=== PATIENT | male | born 1950 | race Caucasian/White ===

== ENCOUNTER → 2016-07-07 | Outpatient (CLI) | payer MEDICARE, OTHER ==
[~2016-07-07] MED LIST: ACTOS 15MG TABL15 MG PO; ALDACTONE100 MG PO; ANTIVERT/2525 MG PO; CHRONULAC 30ML30 ML PO; FLORA Q PO; GABAPENTIN300 M1 PO; GLYBURIDE AND M1 TA2 PO; HUMALOG100 U/M1 SC; HUMIRA40 MG/0.3 SQ; INSULIN GL100 UNITS/ SC; KOMBIGLYZE XR 11 TER PO; LACTULOSE10 GM/15 M PO; LACTULOSE10 GM/151 PO; LASIX40 MG PO; LISINOPRIL10 MG PO; MACROBID100 M3 PO; OMEPRAZOLE D/R20 MG PO; PHENERGAN 25MG.25 M1 PO; PROPRANOLOL HCL20 MG PO; RIFADIN 300MG300 MG PO; XIFAXAN200 MG PO; XIFAXAN550 MG PO; [UNRECOGNIZED DRUG - OTHER] TP
--- NOTE | 2016-07-08 16:31 | RADIOLOGY REPORT PS360 ---
US ABD(COMPLETE-MULTI ORGANS ORDERING PHYSICIAN : CASSIDY GARCIA APRN PATIENT AGE: 65 years GENDER: Male INDICATION: CIRRHOSIS . Splenomegaly Portal hypertension TECHNIQUE: Ultrasound abdomen complete COMPARISON: Previous ultrasound abdomen 02/01/2016 FINDINGS Pancreas.. Not well seen but grossly unremarkable Liver. Very coarse inhomogeneous pattern compatible with cirrhosis. Small trunk in liver inhomogeneous nodular pattern to the liver. Portal vein measures 1.66 cm reflecting portal hypertension. Our current images suggest that there is Normal direction flow of. Portal vein Portal venous collaterals Gallbladder. Cholelithiasis.. Suggestion of up to 1.3 cm Cm gallstone towards neck of gallbladder. No gallbladder wall thickening. No acute findings. Common duct normal diameter. Right kidney. Normal size. 9.8 cm lengthCortex well-maintained bilateral. Left kidney 11.8 seem in length. Stable No hydronephrosis nor mass either kidney. Splenomegaly spleen measuring 20 cm length maximally Aorta, normal caliber. It measures up to 2 cm. No aneurysm. This is compatible 2015 CT..... . IMPRESSION: 1. Coarse nodular architecture liver. Decrease size of liver. Findings compatible with advanced cirrhosis. 2. Portal venous collaterals noted . Dilated portal vein 1.66 cm diameter.. Normal direction flow on these images . 3. Prominent splenomegaly. 4. No ascites evident. 5. Cholelithiasis. Again noted
== END ==
LOC: RAD 08:34
DX: K74.60 Unspecified cirrhosis of liver (principal)

== ENCOUNTER 2017-01-21 22:10 | Inpatient (IN) | payer MEDICARE, OTHER ==
[~2017-01-21] VITALS: Ht 182.9 cm; Wt 79.4 kg
[2017-01-21 22:17] VITALS: BP 111/67
--- OUTSIDE RECORDS SUMMARY | 2017-01-21 22:25 | External Medical Summary Rpt ---
Author Author [employer], [employer] Organization [employer] Address Unknown Phone Unavailable Results Comprehensive metabolic 2000 panel in Serum or Plasma Observa Value Referen Units Interpr Notes Date tion ce etation Range Albumin/G 1.1 - 1.8 No Low No Joshua 9 lobulin informati informati 2017 [Mass on in on in 11:31 AM ratio] in source source Serum or data data Plasma Albumin 3.4 - 5.0 gm/dL Low No Joshua 9 [Mass/vol informati 2017 ume] in on in 11:31 AM Serum or source Plasma data Alkaline 46 - 116 U/L Normal No Joshua 9 phosphata informati 2017 se on in 11:31 AM [Enzymati source c data activity/ volume] in Serum or Plasma Bilirubin 0.2 - 1.0 mg/dL Normal No Dec 9 .total informati 2017 [Mass/vol on in 11:31 AM ume] in source Serum or data Plasma Urea 7 - 18 mg/dL Normal No Joshua 9 nitrogen informati 2017 [Mass/vol on in 11:31 AM ume] in source Serum or data Plasma Calcium 8.5 - mg/dL Normal No Joshua 9 [Mass/vol 10.1 informati 2017 ume] in on in 11:31 AM Serum or source Plasma data Chloride 98 - 107 mmoL/L Normal No Joshua 9 [Moles/vo informati 2017 lume] in on in 11:31 AM Serum or source Plasma data Carbon 21.0 - mmoL/L Normal No Joshua 9 dioxide, 32.0 informati 2017 total on in 11:31 AM [Moles/vo source lume] in data Serum or Plasma Creatinin 0.70 - mg/dL Normal No Dec 9 e 1.30 informati 2017 [Mass/vol on in 11:31 AM ume] in source Serum or data Plasma Estimated >60 ML/MIN No REFERENCE Joshua 9 informati RANGE: 2017 glomerula on in >60 11:31 AM r source ML/MIN/1. filtratio data 73 SQUARE n rate METERSIf (GF this patient is -A merican, then multiply theresult by 1.210. Globulin 1.3 - 3.2 gm/dL High No Dec 9 [Mass/vol informati 2016 ume] in on in 11:31 AM Serum source data Glucose 74 - 106 mg/dL High No Dec 9 [Mass/vol informati 2016 ume] in on in 11:31 AM Serum or source Plasma data Potassium 3.5 - 5.1 mmoL/L Normal No Dec 12 inform2016 [Moles/vo on in 11:31 AM lume] in source Serum or data Plasma Sodium 136 - 145 mmoL/L Normal No Dec 12 [Moles/vo informati 2016 lume] in on in 11:31 AM Serum or source Plasma data Aspartate 15 - 37 U/L Normal No Dec 12 inform2016 aminotran on in 11:31 AM sferase source [Enzymati data c activity/ volume] in Serum or Plasma Alanine 12 - 78 U/L Normal No Dec 12 aminotran informati 2016 sferase on in 11:31 AM [Enzymati source c data activity/ volume] in Serum or Plasma Protein 6.4 - 8.2 gm/dL Normal No Dec 12 [Mass/vol informati 2016 ume] in on in 11:31 AM Serum or source Plasma data INR in Blood by Coagulation assay Observa Value Referen Units Interpr Notes Date tion ce etation Range INR in 0.9 - 1.1 No High INDICATIO Dec 12 Blood by informati N 2017 Coagulati on in 11:31 AM on assay source INR data RANGETHER APY FOR DVT, PE, ATRIAL FIB; 2.0 - 3.0PROPHY LAXIS FOR VTETHERAP Y FOR MECHANICA L HEART 2.5 - 3.5VALVE; PREVENTIO N OF SYSTEMICE MBOLISM SECONDARY TO AMI Prothromb 9.4 - SECONDS High No Dec 9 in time 11.8 informati 2016 (PT) in on in 11:31 AM Platelet source poor data plasma by Coagulati on assay CBC W Auto Differential panel in Blood Observa Value Referen Units Interpr Notes Date tion ce etation Range Basophils 0 - 0.2 K/MM3 Normal No Dec 9 inform2016 [#/volume on in 11:31 AM ] in source Blood by data Automated count Basophils 0.1 - 2.0 % Normal No Dec 9 /100 informati 2016 leukocyte on in 11:31 AM s in source Blood by data Automated count Eosinophi 0.0 - 0.4 K/mm3 Normal No Dec 9 ls informati 2016 [#/volume on in 11:31 AM ] in source Blood by data Automated count Eosinophi 0.1 - % Normal No Dec 9 ls/100 12.0 inform2016 leukocyte on in 11:31 AM s in source Blood by data Automated count Granulocy 1.3 - 8.0 K/mm3 Normal No Dec 12 kane informati 2016 [#/volume on in 11:31 AM ] in source Blood by data Automated count Granulocy 37.0 - % Normal No Dec 12 kane/100 80.0 inform2016 leukocyte on in 11:31 AM s in source Blood by data Automated count Hematocri 42.0 - % Low No Dec 12 t [Volume 52.0 inform2016 on in 11:31 AM Fraction] source of Blood data Hemoglobi 14.1 - g/dL Low No Dec 12 n 18.0 inform2016 [Mass/vol on in 11:31 AM ume] in source Blood data Lymphocyt 0.7 - 4.5 K/mm3 Normal No Dec 12 es inform2016 [#/volume on in 11:31 AM ] in source Unspecifi data ed specimen by Automated count Lymphocyt 10 - 50 % Normal No Dec 12 es inform2016 [#/volume on in 11:31 AM ] in source Unspecifi data ed specimen by Automated count Erythrocy 27 - 31.2 pg Normal No Dec 9 te mean inform2016 corpuscul on in 11:31 AM ar source hemoglobi data n [Entitic mass] Erythrocy 31.8 - g/dl Low No Dec 12 te mean 35.4 inform2016 corpuscul on in 11:31 AM ar source hemoglobi data n concentra tion [Mass/vol ume] by Automated count Erythrocy 82.2 - fl Normal No Dec 12 te mean 97.8 informati 2016 corpuscul on in 11:31 AM ar volume source [Entitic data volume] by Automated count Monocytes 0.1 - 1.0 K/mm3 Normal No Dec 9 informati 2016 [#/volume on in 11:31 AM ] in source Blood by data Automated count Monocytes 1.7 - 9.3 % High No Dec 12 / informati 2016 leukocyte on in 11:31 AM s in source Blood by data Automated count Platelet 7.4 - fl High No Dec 9 mean 10.4 informati 2016 volume on in 11:31 AM [Entitic source volume] data in Blood by Automated count Platelets 142 - 424 K/mm3 Low No Dec 9 informati 2016 [#/volume on in 11:31 AM ] in source Blood data Erythrocy 4.6 - 6.2 M/mm3 Low No Dec 9 kane informati 2016 [#/volume on in 11:31 AM ] in source Amniotic data fluid Erythrocy 11.5 - % Normal No Dec 9 te 17.5 ati 2016 distribut on in 11:31 AM ion width source [Entitic data volume] by Automated count Leukocyte 4.8 - K/MM3 Low No Dec 9 s 10.8 informati 2016 [#/volume on in 11:31 AM ] in source Blood data
--- OUTSIDE RECORDS SUMMARY | 2017-01-21 22:25 | External Medical Summary Rpt ---
Author Author , PARKER CANALES Address Unknown Phone [email or web address] Immunization Name Date Rout CVX Reac Dose Comm Prov Is Faci e tion ent ider Refu lity Give sed n Pneu 09-3 109 999 Hist D203 No D203 moco 0-20 oric 45 45 ccal 16 al , UF Info rmat ion - Sour ce Unsp ecif ied Infl 09-3 135 999 Hist D203 No D203 uenz 0-20 oric 45 45 a, 16 al High Info rmat Dose ion - Sour ce Unsp ecif ied
--- OUTSIDE RECORDS SUMMARY | 2017-01-21 22:25 | External Medical Summary Rpt ---
Author Author , PARKER CANALES Address Unknown Phone [email or web address] Immunization Name Date Rout CVX Reac Dose [...]
--- OUTSIDE RECORDS SUMMARY | 2017-01-21 22:25 | External Medical Summary Rpt ---
Author Author [employer] Organization [employer] Address Unknown Phone Unavailable Purpose Continuity of Care Document - through 2016
--- OUTSIDE RECORDS SUMMARY | 2017-01-21 22:25 | External Medical Summary Rpt ---
Author Author NAMAN Address Unknown Phone [email or web address] Purpose Continuity of Care Document - 12-12-2016 through 2016 Problems Code Diagnosis DOS Provider Status K74.60 UNSPECIFIED CIRRHOSIS OF LIVER
--- OUTSIDE RECORDS SUMMARY | 2017-01-21 22:25 | External Medical Summary Rpt ---
Author Author NAMAN Address Unknown Phone [email or web address] Purpose Continuity of Care Document - 12-12-2016 through 2016 Problems Code Diagnosis DOS Provider Status K74.60 UNSPECIFIED CIRRHOSIS OF LIVER
[2017-01-21 22:55] LABS: HEMOGLOBIN 10.9 g/dL (14.1-18.0); LYMPH # 1.8 K/mm3 (0.7-4.5); LYMPH % 31.9 % (10-50)
--- NOTE | 2017-01-21 23:04 | RADIOLOGY REPORT PS360 ---
CT HEAD WITHOUT CONTRAST CT BONE WINDOWS included ORDERING PHYSICIAN : Jarred Perez MD PATIENT AGE: 66 years GENDER: Male PROCEDURE: Routine axial images headwithout contrast. Brain & bone windows HISTORY: AMS altered mental status. Minimal bruising questionrecent trauma COMPARISON: 06/05/2015 CT head without FINDINGS: No acute intracranial findings. No hemorrhage. . CT brain shows no significant change since 06/05/2015 prior study. No mass effect or mass lesion. No subdural nor extra-axial collection. Mild diffuse cerebral atrophy. Ventricles & basal cisterns appear satisfactory. .. The posterior fossa appear satisfactory and unremarkable. The skull is intact. No scalp hematoma. Mastoid air cells, middle ear & IACs are unremarkable. Paranasal sinuses observations noted: Left maxillary sinus is only partially imaged but appears to be prominent mucosal thickening & nearly opacified. Only small aerated portion superior medial aspect adjacent to a defect at the superior medial wall left maxillary sinus.possible postsurgical defect, . Previous head CT studies do not fully include this region but but probably was partially left maxillary sinus near opacified on October 2014. Head CT Right maxillary sinuses clear Opacified posterior right ethmoid air cell. Sphenoid sinuses are clear. With deviation nasal septum with prominent septal spur to the right. The.... IMPRESSION:.................. No acute intracranial findings. No hemorrhage. No territorial infarct. No subdural collections are evident. (Stable appearance the brain compared to Jun and October 2014) Paranasal sinus disease incidentally noted: Opacification left maxillary sinus; Likely chronic with suggestion of osseous defect at medial wall left maxillary sinus. Possibly postsurgical. Mild inflammatory changes posterior right ethmoid air cell also noted
[2017-01-21 23:23] LABS: BUN 35 mg/dL (7-18); GFR (ESTIMATED) 43 ML/MIN (>60)
--- NOTE | 2017-01-21 23:55 | Emergency Room Report ---
History of Present Illness Time Seen by [id number] Presenting Problem in Triage Pt arrived:Wheelchair Presenting Problem:PER PT'S , "WHEN HIS AMMONIA LEVEL GETS OUT OF WHACK, HE GETS LIKE THIS, HE WAS GOING TO THE KITCHEN TRYING TO GO TO THE BATHROOM, AND THEN HE WAS DOING GOOD TODAY, BUT THEN HE GOT WORSE TONIGHT." PT ABLE TO TELL RN HIS NAME AND BIRTHDATE DURING TRIAGE. NO ACUTE NEURO DEFICITS NOTED. MD AWARE OF PT'S COMPLAINT AND PRESENTATION. Onset of symptoms date/time:/ or onset unknown for:MEDICAL HX UNKNOWN Treatment Prior to Arrival: DAILY MEDS 3 DOSES OF LACTULOSE PER FINANCIAL LEGAL ASSISTANT Provided by:SELF Sepsis Risk Assessment: Temp: 98.4 B/P: 111/67 MAP: 81 Pulse: 60 Resp: 16 Recent fever? N Clinical Suspician of Infection? N Mental Status: 3 - Acutely Altered Sepsis Risk:Low Sepsis Risk Have you (or family members/close friends) recently traveled outside the [place]? N If Yes, where/when: Have you had exposure to infectious disease within the past month? N TB? Other? Specify: Comment The patient was brought in by . He has a history of cirrhosis with hepatic encephalopathy. 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 He has never been a heavy drinker. She says that yesterday he started getting some confusion. This evening he was worse, consistent with his previous episodes of hepatic encephalopathy. She says he worked out in the heat yesterday and she thinks he also might be dehydrated. He denies falling, but she thinks she sees a little bruise on his RIGHT cheek. He is on lactulose 4 times a day - 2 tablespoons 3 times a day and 1 tablespoon at at bedtime. ALLERGIES Coded Allergies: No Known Allergies (04/14/16) Home Medications Active Scripts Spironolactone (Aldactone 100MG) 100 MG PO DAILY #30 TAB Ref 11 Prov: 09/07/14 Furosemide (Lasix) 40 MG PO DAILY #30 TAB Ref 11 Prov: 09/07/14 Reported Medications Rifaximin (Xifaxan) 550 MG PO Q12H Lactulose 20 GM PO TID #8100 ML SAXAGLIPTIN HCL/METFORMIN HCL (Kombiglyze XR 2.5-1,000 MG Tab) 2 TABS PO QPM INSULIN GLARGINE (Lantus 3ML Solostar Pen) 40 UNITS SC NIGHTLY Propranolol Hcl 10 MG PO DAILY Omeprazole 20 MG PO DAILY INSULIN LISPRO (Humalog) 15 UNITS SC AC #15 Adalimumab (Humira) 40 MG SQ N4GIBCM #2 Gabapentin 300 MG PO QHS #30 History Medical History General CAD? No Angina: No AL: No Hypertension? Yes Hyperlipidemia? No CHF? No DVT? No PE? No COPD? No Asthma? No Anemia? No GERD? No Gastric ulcers? Yes GI Bleed? No Hernia? No Thyroid Problems? No Hypothyroidism? No CVA? No Seizures? No Diabetes? Yes Insulin Dependent: Yes Insulin Pump: No Home FSBS? Yes Renal Insuffiency? No End Stage Renal Disease? No UTI? No Stones? Yes BPH? No GB Disease: Yes Nephritic Syndrome? No Asplenia? No Hepatitis? Yes Sickle Cell Disease? No Arthritis? No Migraines? No Cataracts? Yes Glaucoma? No MRSA? No HIV? No TB? No Anxiety? No Depression? No Cancer? No More? Yes Additional hx: CIRRHOSIS ESOPHAGEAL VARRICES Immunization Hx DT/Tetanus > 10 Years Ago Flu 2016-17FSN Pneumonia Received In Past Surgical Hx Previous Surgery?Y PILONIDAL CYST FINGER SURGERY Family History Family Hx Diabetes Yes CAD No Hypertension No Hyperlipidemia No Cancer Yes TB No Social History Smoking Hx Smoker: Never Smoker Tobacco: No Packs/day N/A Alcohol Alcohol: No Review of Systems All Other Systems Reviewed and Negative (unobtainable due to AMS) Physical Exam Vital Signs Vital Signs Date Time Temp Pulse Resp B/P Pulse O2 O2 Flow FiO2 Ox Delivery Rate 01/22 0313 66 01/22 0313 97.6 66 18 126/68 01/22 0313 98 ROOM AIR 01/22 0154 97.6 66 18 126/68 98 ROOM AIR 01/22 0128 98.4 64 16 110/59 97 01/22 0126 98.4 64 16 110/59 97 / 0056 64 16 110/59 97 /20 0004 63 16 114/59 97 01/21 2217 98.4 60 16 111/67 97 General Appearance thin, drowsy. Answers questions slowly. Oriented to person and place. Does not answer questions regarding time. Eye Exam - bilateral eye normal exam, bilateral eye PERRL, bilateral eye EOMI Ear, Nose, Throat hearing grossly normal, normal ENT inspection Neck normal inspection, non-tender, supple, full range of motion Respiratory Status Yes: trachea midline, chest symmetrical, non tender chest. No: respiratory distress. Lung Sounds bilateral: normal breath sounds, lungs clear. 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 No Results/Orders Laboratory Tests 01/22/17 0225: Lactic Acid 7.3 H 01/21/17 2310: Lactic Acid 3.2 H, Ammonia 202 H 01/21/17 2220: Sodium 140, Potassium 3.7, Chloride 105, Carbon Dioxide 22, BUN 35 H, Creatinine 1.6 H, Estimated Creat Clear 54, Estimated GFR (MDRD) 43, Glucose 111 H, Calcium 10.5 H, Total Bilirubin 1.3 H, AST 29, ALT 36, Alkaline Phosphatase 70, Creatine Kinase 69, CK-MB (CK-2) Rel Index 1.0, CK and CKMB Interp 0.7, Troponin I < 0.02, Total Protein 7.8, Albumin 3.1 L, Globulin 4.7 H, Albumin/Globulin Ratio 0.7 L, WBC 5.8, RBC 4.07 L, Hgb 10.9 L, Hct 34.0 L , MCV 83.6, RDW 15.2, Plt Count 99 L, MPV 9.7, Gran % 48.5, Gran # 2.8, Lymphocytes % 31.9, Monocytes % 11.4 H, Eosinophils % 7.4, Basophils % 0.7, Lymphocytes # 1.8, Monocytes # 0.7, Eosinophils # 0.4, Basophils # 0.0, PUBS MCHC 32.0, MCH 26.8 L Current Medication Orders Sig/Renate Start time Last Medication Dose Route Stop Time Status Admin Lactulose 30 GM TID 01/22 0900 UNV PO Propranolol HCl 10 MG DAILY 01/22 0900 UNV PO Diagnostic Test (Pha) 1 EACH W/MEALS&HS 01/22 07 UNV FS 03/23 0659 Insulin Human [rDNA See Dose W/MEALS&HS 01/22 07 UNV origin] Insts (1) SC Sodium Chloride 50 ML .STK-MED ONE 01/22 0134 DC IV Ceftriaxone Sodium 0 .STK-MED ONE 01/22 0133 DC IV Ceftriaxone Sodium 1 GM ONCE ONE 01/22 0130 DC 01/22 Sodium Chloride 50 ML IV 01/22 0159 0148 Ceftriaxone Sodium 1 GM Q24H 01/22 0115 UNV Sodium Chloride 50 ML IV Nicotine 21 MG DAILYP PRN 01/22 0115 UNV TD Sodium Chloride 1,000 ML .Q6H40M 01/22 0115 UNV 01/22 IV 0147 Sodium Chloride 10 ML PRN PRN 01/22 0115 UNV IV Lactulose 0 .STK-MED ONE 01/22 0042 DC .ROUTE Sodium Chloride 1,000 ML .STK-MED ONE 01/22 0039 DC IV Lactulose 30 GM ONCE ONE 01/22 0015 DC 01/22 PO 01/22 0016 0050 Sodium Chloride 1,000 ML .Q1H1M 01/22 0015 DC 01/22 IV 01/22 0115 0050 Sodium Chloride 10 ML PRN PRN 01/21 2230 AC IV 01/22 2226 Dose Instructions: (1)Insulin Human [rDNA origin]: SEE ADMIN CRITERIA FOR MEDIUM INTENSITY Orders Procedure Date/time Status BASIC METABOLIC PROFILE 01/23 06 Active DIET-2000 CALORIE ADA 01/22 B Active AMMONIA 01/22 06 Active ADMITTED PT IS ACTUALLY IN BED 01/22 0156 Active LACTIC ACID FOLLOW UP 01/22 0101 Complete Decision to admit 01/22 0046 Active ADMIT PATIENT 01/22 UNK Active VITAL SIGNS 01/22 UNK Active POM NURSE VIVIANA GAYLE ORDER 01/22 UNK Active IV SALINE LOCK 01/22 UNK Active RECORD I & O 01/22 UNK Active CODE STATUS 01/22 UNK Active PATIENT ACTIVITY ORDER 01/22 UNK Active 12 LEAD EKG-BESSON (INITIAL) 01/21 2227 Active ELECTROCARDIOGRAM REQUEST 01/[address] HEAD REQ 01/21 2227 Complete CHEST-PORTABLE 01/21 2227 Active IV SALINE LOCK 01/21 2227 Active CULTURE, BLOOD 01/21 2227 Active URINALYSIS/COMPLETE 01/21 2227 Active LACTIC ACID 01/21 2227 Complete CBC WITH AUTO DIFF 01/21 2227 Complete CARDIAC ENZYMES 01/21 2227 Complete CHEM 12 PROFILE 01/21 2227 Complete AMMONIA 01/21 2227 Complete CM/EKG CM/EKG Comments EKG interpreted by Jarred Perez MD: Rhythm: sinus Rate: 60 [place]: normal Ectopy: none Conduction: normal ST Segment Changes: none T Wave Changes: none Q Waves: none No evidence of acute ischemia or injury XRAY/CT/US XRAY/CT/US CT head Comment CT scan interpreted by [facility] radiologist. Faxed report received and reviewed: No acute intracranial findings. Paranasal sinus disease incidentally noted. PATIENT LEFT maxillary sinus, likely chronic with suggestion of osseous defect at medial wall LEFT maxillary sinus. Mild inflammatory changes posterior RIGHT ethmoid air cells. Progress - 12:45 AM: I have discussed the case with Aditya who agrees to admit the patient to the hospital. We discussed the patient's clinical information, including history, exam, laboratory and radiology results and ED course. Per hospital procedure, I will write temporary bridge inpatient orders on the patient. Specific orders requested by the admitting physician: Rocephin for sinus disease. Lactulose 3 tablespoons 3 times a day. Continue IV fluids. Departure Departure Disposition Still a Patient Clinical Impression Primary Impression: Hepatic encephalopathy Secondary Impressions: Dehydration Sinusitis Qualifiers: Sinusitis location: maxillary Chronicity: chronic Qualified Code: J32.0 - Chronic maxillary sinusitis Condition STABLE Referrals Davidson Arias MD (Family) ED Critical Care Critical Care No at [id number]
[2017-01-22] VITALS (8 sets, daily range): BP systolic 103–132; BP diastolic 68–82
--- OUTSIDE RECORDS SUMMARY | 2017-01-22 00:54 | External Medical Summary Rpt ---
Author Author NAMAN Address Unknown Phone [email or web address] Purpose Continuity of Care Document - 12-12-2016 through 2016 Problems Code Diagnosis DOS Provider Status K72.90 HEPATIC FAILURE, UNSPECIFIED WITHOUT COMA K74.60 UNSPECIFIED CIRRHOSIS OF LIVER
--- OUTSIDE RECORDS SUMMARY | 2017-01-22 00:54 | External Medical Summary Rpt ---
Author Author NAMAN Address Unknown Phone [email or web address] Purpose Continuity of Care Document - 12-12-2016 through 2016 Problems Code Diagnosis DOS Provider Status K72.90 HEPATIC FAILURE, UNSPECIFIED WITHOUT COMA K74.60 UNSPECIFIED CIRRHOSIS OF LIVER
--- OUTSIDE RECORDS SUMMARY | 2017-01-22 00:55 | External Medical Summary Rpt ---
Author Author , PARKER CANALES Address Unknown Phone [email or web address] Immunization Name Date Rout CVX Reac Dose [...]
--- OUTSIDE RECORDS SUMMARY | 2017-01-22 00:55 | External Medical Summary Rpt ---
Author Author , PARKER CANALES Address Unknown Phone [email or web address] Immunization Name Date Rout CVX Reac Dose [...]
--- OUTSIDE RECORDS SUMMARY | 2017-01-22 00:55 | External Medical Summary Rpt ---
Author Author [employer], [employer] Organization [employer] Address Unknown Phone Unavailable Results Ammonia [Mass/volume] in Unspecified specimen Observa Value Referen Units Interpr Notes Date tion ce etation Range Ammonia 19 - 54 umoL/L High No Jan 21 [Mass/vol informati 2016 ume] in on in 11:10 PM Unspecifi source ed data specimen Lactate [Moles/volume] in Blood Observa Value Referen Units Interpr Notes Date tion ce etation Range Lactate 0.4 - 2.0 mmol/L High An Jan 21 [Moles/vo elevated 2016 lume] in Lactic 11:10 PM Blood Acid is suggestiv e of sepsis and shouldbe repeated within 6 hours of initial testing. CBC W Auto Differential panel in Blood Observa Value Referen Units Interpr Notes Date tion ce etation Range Basophils 0 - 0.2 K/MM3 Normal No Jan 212016 [#/volume on in 10:20 PM ] in source Blood by data Automated count Basophils 0.1 - 2.0 % Normal No Jan 212016 leukocyte on in 10:20 PM s in source Blood by data Automated count Eosinophi 0.0 - 0.4 K/mm3 Normal No Jan 21 ls 2016 [#/volume on in 10:20 PM ] in source Blood by data Automated count Eosinophi 0.1 - % Normal No Jan 21 ls/100 12.0 2016 leukocyte on in 10:20 PM s in source Blood by data Automated count Granulocy 1.3 - 8.0 K/mm3 Normal No Jan 21 kane inform2016 [#/volume on in 10:20 PM ] in source Blood by data Automated count Granulocy 37.0 - % Normal No Jan 21 kane/100 80.0 2016 leukocyte on in 10:20 PM s in source Blood by data Automated count Hematocri 42.0 - % Low No Jan 21 t [Volume 52.0 2016 on in 10:20 PM Fraction] source of Blood data Hemoglobi 14.1 - g/dL Low No Jan 21 n 18.0 2016 [Mass/vol on in 10:20 PM ume] in source Blood data Lymphocyt 0.7 - 4.5 K/mm3 Normal No Jan 21 es 2016 [#/volume on in 10:20 PM ] in source Unspecifi data ed specimen by Automated count Lymphocyt 10 - 50 % Normal No Jan 21 es 2016 [#/volume on in 10:20 PM ] in source Unspecifi data ed specimen by Automated count Erythrocy 27 - 31.2 pg Low No Jan 21 te mean 2016 corpuscul on in 10:20 PM ar source hemoglobi data n [Entitic mass] Erythrocy 31.8 - g/dl Normal No Jan 21 te mean 35.4 2016 corpuscul on in 10:20 PM ar source hemoglobi data n concentra tion [Mass/vol ume] by Automated count Erythrocy 82.2 - fl Normal No Jan 21 te mean 97.8 2016 corpuscul on in 10:20 PM ar volume source [Entitic data volume] by Automated count Monocytes 0.1 - 1.0 K/mm3 Normal No Jan 212016 [#/volume on in 10:20 PM ] in source Blood by data Automated count Monocytes 1.7 - 9.3 % High No Jan 21 /100 2016 leukocyte on in 10:20 PM s in source Blood by data Automated count Platelet 7.4 - fl Normal No Jan 21 mean 10.4 2016 volume on in 10:20 PM [Entitic source volume] data in Blood by Automated count Platelets 142 - 424 K/mm3 Low No Jan 212016 [#/volume on in 10:20 PM ] in source Blood data Erythrocy 4.6 - 6.2 M/mm3 Low No Jan 21 kane 2016 [#/volume on in 10:20 PM ] in source Amniotic data fluid Erythrocy 11.5 - % Normal No Jan 21 te 17.5 2016 distribut on in 10:20 PM ion width source [Entitic data volume] by Automated count Leukocyte 4.8 - K/MM3 Normal No Jan 21 s 10.8 inform2016 [#/volume on in 10:20 PM ] in source Blood data Comprehensive metabolic 2000 panel in Serum or Plasma Observa Value Referen Units Interpr Notes Date tion ce etation Range Albumin/G 1.1 - 1.8 No Low No Joshua 9 lobulin informati informati 2017 [Mass on in on in 11:31 AM ratio] in source source Serum or data data Plasma Albumin 3.4 - 5.0 gm/dL Low No Dec 9 [Mass/vol informati 2017 ume] in on in 11:31 AM Serum or source Plasma data Alkaline 46 - 116 U/L Normal No Dec 9 phosphata informati 2017 se on in 11:31 AM [Enzymati source c data activity/ volume] in Serum or Plasma Bilirubin 0.2 - 1.0 mg/dL Normal No Dec 9 .total informati 2016 [Mass/vol on in 11:31 AM ume] in source Serum or data Plasma Urea 7 - 18 mg/dL Normal No Dec 9 nitrogen informati 2017 [Mass/vol on in 11:31 AM ume] in source Serum or data Plasma Calcium 8.5 - mg/dL Normal No Dec 12 [Mass/vol 10.1 informati 2016 ume] in on in 11:31 AM Serum or source Plasma data Chloride 98 - 107 mmoL/L Normal No Dec 9 [Moles/vo informati 2017 lume] in on in 11:31 AM Serum or source Plasma data Carbon 21.0 - mmoL/L Normal No Dec 9 dioxide, 32.0 informati 2017 total on in 11:31 AM [Moles/vo source lume] in data Serum or Plasma Creatinin 0.70 - mg/dL Normal No Dec 9 e 1.30 informati 2016 [Mass/vol on in 11:31 AM ume] in source Serum or data Plasma Estimated >60 ML/MIN No REFERENCE Joshua 9 informati RANGE: 2017 glomerula on in >60 11:31 AM r source ML/MIN/1. filtratio data 73 SQUARE n rate METERSIf (GF this patient is -A merican, then multiply theresult by 1.210. Globulin 1.3 - 3.2 gm/dL High No Dec 9 [Mass/vol informati 2017 ume] in on in 11:31 AM Serum source data Glucose 74 - 106 mg/dL High No Dec 9 [Mass/vol informati 2017 ume] in on in 11:31 AM Serum or source Plasma data Potassium 3.5 - 5.1 mmoL/L Normal No Joshua 9 informati 2017 [Moles/vo on in 11:31 AM lume] in source Serum or data Plasma Sodium 136 - 145 mmoL/L Normal No Dec 12 [Moles/vo informati 2016 lume] in on in 11:31 AM Serum or source Plasma data Aspartate 15 - 37 U/L Normal No Dec 122016 aminotran on in 11:31 AM sferase source [Enzymati data c activity/ volume] in Serum or Plasma Alanine 12 - 78 U/L Normal No Dec 12 aminotran 2016 sferase on in 11:31 AM [Enzymati [...] INDICATIO Dec 12 Blood by informati N 2016 Coagulati on in 11:31 AM on assay source INR data RANGETHER APY FOR DVT, PE, ATRIAL FIB; 2.0 - 3.0PROPHY LAXIS FOR VTETHERAP Y FOR MECHANICA L HEART 2.5 - 3.5VALVE; PREVENTIO N OF SYSTEMICE MBOLISM SECONDARY TO AMI Prothromb 9.4 - SECONDS High No Dec 12 in time 11.8 2016 (PT) in on in 11:31 AM Platelet source poor data plasma by Coagulati on assay CBC W Auto Differential panel in Blood Observa Value Referen Units Interpr Notes Date tion ce etation Range Basophils 0 - 0.2 K/MM3 Normal No Dec 122016 [#/volume on in 11:31 AM ] in source Blood by data Automated count Basophils 0.1 - 2.0 % Normal No Dec 12 /100 informati 2016 leukocyte on in 11:31 AM s in source Blood by data Automated count Eosinophi 0.0 - 0.4 K/mm3 Normal No Dec 12 ls ati 2016 [#/volume on in 11:31 AM ] in source Blood by data Automated count Eosinophi 0.1 - % Normal No Dec 12 ls/100 12.0 2016 leukocyte on in 11:31 AM s in source Blood by data Automated count Granulocy 1.3 - 8.0 K/mm3 Normal No Joshua 9 kane informati 2016 [#/volume on in 11:31 AM ] in source Blood by data Automated count Granulocy 37.0 - % Normal No Dec 12 kane/100 80.0 informati 2016 leukocyte on in 11:31 AM s in source Blood by data Automated count Hematocri 42.0 - % Low No Dec 12 t [Volume 52.0 informati 2016 on in 11:31 AM Fraction] source of Blood data Hemoglobi 14.1 - g/dL Low No Dec 12 n 18.0 informati 2016 [Mass/vol on in 11:31 AM ume] in source Blood data Lymphocyt 0.7 - 4.5 K/mm3 Normal No Dec 12 es informati 2016 [#/volume on in 11:31 AM ] in source Unspecifi data ed specimen by Automated count Lymphocyt 10 - 50 % Normal No Dec 12 es inform2016 [#/volume on in 11:31 AM ] in source Unspecifi data ed specimen by Automated count Erythrocy 27 - 31.2 pg Normal No Dec 12 te mean inform2016 corpuscul on in 11:31 AM ar source hemoglobi data n [Entitic mass] Erythrocy 31.8 - g/dl Low No Dec 12 te mean 35.4 informati 2016 corpuscul on in 11:31 AM ar source hemoglobi data n concentra tion [Mass/vol ume] by Automated count Erythrocy 82.2 - fl Normal No Dec 9 te mean 97.8 informati 2016 corpuscul on in 11:31 AM ar volume source [Entitic data volume] by Automated count Monocytes 0.1 - 1.0 K/mm3 Normal No Dec 12 informati 2016 [#/volume on in 11:31 AM ] in source Blood by data Automated count Monocytes 1.7 - 9.3 % High No Dec 9 /100 informati 2017 leukocyte on in 11:31 AM s in source Blood by data Automated count Platelet 7.4 - fl High No Dec 12 mean 10.4 informati 2016 volume on in 11:31 AM [Entitic source volume] data in Blood by Automated count Platelets 142 - 424 K/mm3 Low No Dec 9 informati 2016 [#/volume on in 11:31 AM ] in source Blood data Erythrocy 4.6 - 6.2 M/mm3 Low No Dec 9 kane informati 2017 [#/volume on in 11:31 AM ] in source Amniotic data fluid Erythrocy 11.5 - % Normal No Dec 9 te 17.5 informati 2017 distribut on in 11:31 AM ion width source [Entitic data volume] by Automated count Leukocyte 4.8 - K/MM3 Low No Dec 9 s 10.8 informati 2016 [#/volume on in 11:31 AM ] in source Blood data
--- NOTE | 2017-01-22 07:18 | PHARMACY CLINIC NOTE ---
Patient Demographics Patient Demographics Admission date: 01/22/17 Date: 01/22/17 Time: 716 Allergies Coded Allergies: No Known Allergies (04/14/16) HEIGHT- FT: 6 IN: 0.00 K.380 VTE General Information Labs: Laboratory Tests 01/21 2220 Hematology Hgb (14.1 - 18.0 g/dL) 10.9 L Hct (42.0 - 52.0 %) 34.0 L Plt Count (142 - 424 K/mm3) 99 L Disclaimer The following section includes nursing documentation that has been pulled in for pharmacy review. Patient's VTE score: 3 Patient's VTE Risk: LOW RISK Clinical trial participant? No VTE prophylaxis [facility] 0371 VTE prophylaxis ordered? Yes Type of prophylaxis/treatment: VIVIANA at 0718
--- NOTE | 2017-01-22 07:18 | PHARMACY CLINIC NOTE ---
Patient Demographics Patient Demographics Admission date: 01/22/17 Date: 01/22/17 Time: 716 Allergies Coded Allergies: No Known Allergies (04/14/16) HEIGHT- FT: 6 IN: 0.00 K.380 VTE General Information Labs: Laboratory Tests 01/21 2220 Hematology Hgb (14.1 - 18.0 g/dL) 10.9 L Hct (42.0 - 52.0 %) 34.0 L Plt Count (142 - 424 K/mm3) 99 L Disclaimer The following section includes nursing documentation that has been pulled in for pharmacy review. Patient's VTE score: 3 Patient's VTE Risk: LOW RISK Clinical trial participant? No VTE prophylaxis [facility] 0371 VTE prophylaxis ordered? Yes Type of prophylaxis/treatment: VIVIANA at 0718
--- NOTE | 2017-01-22 07:30 | HISTORY AND PHYSICAL REPORT ---
Demographics: Admit date: 01/21/17 Chief complaint: Mental status changes PRIMARY DIAGNOSIS: HEPATIC ENCEPHALOPATHY Allergies: Coded Allergies: No Known Allergies (04/14/16) History of present illness: History of present illness: 66-year-old male with nonalcoholic cirrhosis of liver presented to the emergency department yesterday after his noted mental status changes. His reports that the day prior he had spent most of the day outside in the heat and she is unsure of whether he drinks enough water. He seemed especially tired on the day of admission. As the day progressed he seemed to become more confused at home. She noticed a episode of tremors which she thought was signaling that he was actually about to . She was able to get him seated after his tremors and contacted the ambulance. Workup in the emergency department revealed a severely elevated ammonia level. Patient was able to recall date and time but mentation was quite slow. Patient had an elevated BUN and creatinine to support diagnosis of dehydration as well. He has been admitted and placed on IV fluids. The patient takes Xifaxan at home for hepatic encephalopathy. He also uses lactulose approximately 3 times a day. Past medical history: Family HX Family Hx Insignificant No Diabetes Yes CAD No Hypertension No Hyperlipidemia No Cancer Yes TB No Immunization HX DT/Tetanus > 10 Years Ago Flu 2015-FSN Pneumonia Received In Past TB Test in last year No General CAD? No Angina: No IA: No Hypertension? Yes Hyperlipidemia? No CHF? No DVT? No PE? No COPD? No Asthma? No Anemia? No GERD? No Gastric ulcers? Yes GI Bleed? No Hernia? No Thyroid Problems? No Hypothyroidism? No CVA? No Seizures? No Diabetes? Yes Insulin Dependent: Yes Insulin Pump: No Home FSBS? Yes Renal Insuffiency? No UTI? No Stones? Yes BPH? No GB Disease: Yes Nephritic Syndrome? No Asplenia? No Hepatitis? Yes Sickle Cell Disease? No Arthritis? No Migraines? No Cataracts? Yes Glaucoma? No MRSA? No HIV? No TB? No Anxiety? No Depression? No Cancer? No More? Yes Additional hx: CIRRHOSIS ESOPHAGEAL VARRICES Past Surgical HX Previous Surgery?Y PILONIDAL CYST FINGER SURGERY Current home meds: Active Scripts Spironolactone (Aldactone 100MG) 100 MG PO DAILY #30 TAB Ref 11 Prov: 03/05/15 Furosemide (Lasix) 40 MG PO DAILY #30 TAB Ref 11 Prov: 09/07/14 Reported Medications Rifaximin (Xifaxan) 550 MG PO Q12H Lactulose 20 GM PO TID #8100 ML SAXAGLIPTIN HCL/METFORMIN HCL (Kombiglyze XR 2.5-1,000 MG Tab) 2 TABS PO QPM INSULIN GLARGINE (Lantus 3ML Solostar Pen) 40 UNITS SC NIGHTLY Propranolol Hcl 10 MG PO DAILY Omeprazole 20 MG PO DAILY INSULIN LISPRO (Humalog) 15 UNITS SC AC #15 Adalimumab (Humira) 40 MG SQ [id number] #2 Gabapentin 300 MG PO QHS #30 Social Hx: Smoking HX Tobacco No Packs/day N/A Are you/the child exposed to second-hand smoke: Yes Alcohol Alcohol: No Hx of Drug Use Drug Use? No Patien't marital status is Patient's support system is good Review of systems: Constitutional weakness. No: chills, diaphoresis, fever, malaise. Respiratory no symptoms reported. Cardiovascular no symptoms reported Gastrointestinal/Abdominal no symptoms reported Genitourinary no symptoms reported. Musculoskeletal muscle stiffness. Neurological Yes: see HPI. Exam: Lab data for last 24 hours: Laboratory Tests 01/22/17 0650: POC Glucose 150 H 01/22/17 0225: Lactic Acid 7.3 H 01/21/17 2310: Lactic Acid 3.2 H, Ammonia 202 H 01/21/17 2220: Sodium 140, Potassium 3.7, Chloride 105, Carbon Dioxide 22, BUN 35 H, Creatinine 1.6 H, Estimated Creat Clear 54, Estimated GFR (MDRD) 43, Glucose 111 H, Calcium 10.5 H, Total Bilirubin 1.3 H, AST 29, ALT 36, Alkaline Phosphatase 70, Creatine Kinase 69, CK-MB (CK-2) Rel Index 1.0, CK and CKMB Interp 0.7, Troponin I < 0.02, Total Protein 7.8, Albumin 3.1 L, Globulin 4.7 H, Albumin/Globulin Ratio 0.7 L, WBC 5.8, RBC 4.07 L, Hgb 10.9 L, Hct 34.0 L , MCV 83.6, RDW 15.2, Plt Count 99 L, MPV 9.7, Gran % 48.5, Gran # 2.8, Lymphocytes % 31.9, Monocytes % 11.4 H, Eosinophils % 7.4, Basophils % 0.7, Lymphocytes # 1.8, Monocytes # 0.7, Eosinophils # 0.4, Basophils # 0.0, PUBS MCHC 32.0, MCH 26.8 L Microbiology 01/22 2220 BLOOD: Anaerobic Blood Culture - RECD 01/22 2220 BLOOD: Aerobic Blood Culture - RECD 01/22 2220 BLOOD: Anaerobic Blood Culture - RECD 01/22 2220 BLOOD: Aerobic Blood Culture - RECD Admission vital signs: 1ST Vital Signs Result Date Time Pulse Ox 97 01/21 2217 B/P 111/67 01/21 2217 Temp 98.4 01/21 2217 Pulse 60 01/21 2217 Resp 16 01/21 2217 O2 Delivery ROOM AIR 01/22 0154 Additional information: Patient is resting comfortably in bed this morning. He does awaken with light tactile stimulation. He recalls that he is in the hospital. He is able to recall his entire name in the year. Oropharynx is a bit dry. Neck is without any lymphadenopathy. Lungs are clear to auscultation. Heart has a regular rate and rhythm. Abdomen is soft. There is hepatomegaly. There is no ascites. Bowel sounds are present. Extremities are without any edema. There is no asterixis on neurologic exam. Plan: Problem List 1. Hepatic encephalopathy 2. Thrombocytopenia 3. Cirrhosis of liver not due to alcohol 4. Dehydration Plan: Patient will be placed on lactulose 30 grams every 2 hours until he is having regular bowel movements. Continue IV fluids for his dehydration. Continue home Xifaxan. For his diabetes he will be covered with sliding scale insulin and his long-acting insulin in the evenings. Patient has elevated lactic acid level and this is likely due to dehydration along with his use of metformin.
--- NOTE | 2017-01-22 09:22 | RADIOLOGY REPORT PS360 ---
CHEST-PORTABLE HISTORY: History of shortness of breath, altered mental status AMS ORDERING PHYSICIAN: Jarred Perez MD PATIENT AGE: 66 years COMPARISON: 06 06 15 FINDINGS: Unremarkable cardiovascular structures. Lungs are clear bilaterally. No effusions or infiltrates. No acute bony anomalies. IMPRESSION: No acute finding
[2017-01-23 04:18] VITALS: BP 124/60
--- NOTE | 2017-01-23 07:07 | ACUTE CARE PROGRESS NOTE (QUA) ---
Progress Notes Subjective Date 01/23/17 Time 0705 Note Patient became restless yesterday evening and was given hydroxyzine. This helped , patient down. IV fluids were discontinued as the patient was pulling his IV line and there was concern he would pull out his IV. His is at bedside this morning. Patient was able to get some rest overnight although did awaken around 4 AM and 8. He has had 2 large bowel movements since yesterday. The patient awakens easily this morning. He does not appear to be in any distress. Lungs are clear. Heart has a regular rate and rhythm. Abdomen is soft. Neurologically he is oriented to person, place , time. Ammonia level pending Continue lactulose, Xifaxan. Hold IV fluids at this time. If ammonia remains significantly elevated restart lactulose every 2 hours Objective Findings Last VS-Temp:98.0 B/P:124/60 Pulse:64 Resp:18 SaO2:98 ROOM AIR Last weight lbs:175 oz:0 K.380 Method:Bed Scales Laboratory Tests 01/22/17 2021: POC Glucose 257 H 01/22/17 1634: POC Glucose 187 H 01/22/17 1109: POC Glucose 150 H 01/22/17 1050: Ammonia 175 H Assessment/Plan Problem List 1. Hepatic encephalopathy 2. Thrombocytopenia 3. Cirrhosis of liver not due to alcohol 4. Dehydration Patient condition Stable Plan: continue current care This inpt stay is expected to cross 2 MNs from start of care Yes at 0707
[2017-01-23 07:45] VITALS: BP 130/65
[2017-01-23 09:55] VITALS: BP 130/65
[2017-01-23 15:59] VITALS: BP 109/59
[2017-01-23 19:48] VITALS: BP 117/56
[2017-01-24 03:50] VITALS: BP 124/58
--- NOTE | 2017-01-24 06:49 | ACUTE CARE PROGRESS NOTE (QUA) ---
Progress Notes Subjective Date 01/24/17 Time 0647 Note Patient is without complaints this morning. He ambulated twice yesterday evening with the use of a walker. He continued to have loose bowel movements. Patient is awake and alert and oriented 3. Lungs are clear. Heart has a regular rate and rhythm. Abdomen is soft, nontender, nondistended. Patient will be discharged home today. I have advised against being out in the heat if the temperature is over 80 degrees. It is important to stay hydrated. It is apparent that dehydration is what triggered this episode of hepatic encephalopathy. Patient will follow-up in the office on January 30. Objective Findings Last VS-Temp:98.0 B/P:124/58 Pulse:57 Resp:20 SaO2:98 ROOM AIR Last weight lbs:175 oz:0 K.380 Method:Bed Scales Laboratory Tests 01/24/17 0628: POC Glucose 153 H 01/23/17 2109: POC Glucose 406 *H 01/23/17 1702: POC Glucose 197 H 01/23/17 1157: POC Glucose 201 H Assessment/Plan Problem List 1. Hepatic encephalopathy 2. Thrombocytopenia 3. Cirrhosis of liver not due to alcohol 4. Dehydration Patient condition Improving Plan: initiate discharge plan This inpt stay is expected to cross 2 MNs from start of care Yes at 0649
--- NOTE | 2017-01-24 06:53 | Discharge Summary ---
Demographics Admit date: 01/21/17 Discharge date: 01/24/17 Discharge diagnoses Problem List 1. Hepatic encephalopathy 2. Thrombocytopenia 3. Cirrhosis of liver not due to alcohol 4. Dehydration History of present illness History of present illness 66-year-old male with nonalcoholic cirrhosis of liver presented to the emergency department yesterday after his noted mental status changes. His reports that the day prior he had spent most of the day outside in the heat and she is unsure of whether he drinks enough water. He seemed especially tired on the day of admission. As the day progressed he seemed to become more confused at home. She noticed a episode of tremors which she thought was signaling that he was actually about to . She was able to get him seated after his tremors and contacted the ambulance. Workup in the emergency department revealed a severely elevated ammonia level. Patient was able to recall date and time but mentation was quite slow. Patient had an elevated BUN and creatinine to support diagnosis of dehydration as well. He has been admitted and placed on IV fluids. The patient takes Xifaxan at home for hepatic encephalopathy. He also uses lactulose approximately 3 times a day. Patient was admitted and placed on lactulose 30 g every 2 hours. It was nearly 24 hours before the patient had his first bowel movement. Over the course of 72 hours the patient's ammonia level dropped from its high of 200 to 54. Once patient's ammonia level had decreased he was returned to his regular dosing regimen of Xifaxan 550 mg twice a day and lactulose 30 g 4 times per day. As the patient's ammonia level dropped he became more lucid. On January 23 the patient was near baseline. He was encouraged to ambulate and get out of bed. He was able to do this with help of a walker. He returned to his baseline mental status. At discharge she is alert and oriented 3. Upon admission patient had signs of dehydration with elevated BUN and creatinine to support this. He was started on IV fluids at 125 ML's per hour of normal saline. He continued on this for the first 24 hours of hospitalization. On the evening of the the patient became restless and was pulling at IV lines so fluids were discontinued. BUN and creatinine returned to baseline. Creatinine at discharge was 1. Once the patient returned to baseline and he was discharged home. Discharge condition is stable. He is advised against venturing out in the heat for any significant period of time. He was encouraged to stay hydrated as well. Patient understands and his understands as well. Patient will follow-up in my office on January 30 Medications Medications: Discharge meds are as noted. Follow up Follow up in office in: January 30 with: Davidson Arias MD at 0688
[2017-01-24 08:00] VITALS: BP 103/49
[2017-01-24 09:34] VITALS: BP 103/49
== END 2017-01-24 10:36 | disposition home or self-care (01) | DRG 641 ==
LOC: ER 22:10 → 2ND 01-22 00:51 → ER 01-22 00:51 → 2ND 01-22 01:29
PROVIDERS: Emergency Medicine
DX: E86.0 Dehydration (principal); K74.69 Other cirrhosis of liver; K72.90 Hepatic failure, unspecified without coma; I10 Essential (primary) hypertension; E11.9 Type 2 diabetes mellitus without complications; Z79.4 Long term (current) use of insulin

== ENCOUNTER → 2017-02-20 | Outpatient (CLI) | payer MEDICARE, OTHER ==
--- NOTE | 2017-02-20 14:11 | RADIOLOGY REPORT PS360 ---
US ABD(COMPLETE-MULTI ORGANS HISTORY: CIRRHOSIS ORDERING PHYSICIAN: CASSIDY PADILLA PATIENT AGE: 66 years COMPARISON: None FINDINGS: PANCREAS:Unremarkable. No obvious mass or abnormal fluid collection. No ductal dilatation LIVER:There is heterogeneous echogenicity of the liver which appear small. No focal liver lesions demonstrated. There is appropriate direction of blood flow within the portal vein. The portal vein is slightly prominent at 15 mm. Collaterals are present in the perihepatic region. RIGHT KIDNEY:Unremarkable. Normal size and echogenicity. No hydronephrosis LEFT KIDNEY:Unremarkable. No hydronephrosis. Normal size and echogenicity. GALLBLADDER:Gallstones are present. No gallbladder wall thickening, pericholecystic fluid, or biliary dilatation. AORTA:No evidence of aneurysmal dilatation. SPLEEN:Mild splenomegaly at 15 cm ASCITES:Minimal amount fluid noted in the perisplenic region IMPRESSION: 1. Overall no change of the small liver with heterogeneous echogenicity consistent with cirrhosis. 2. Mild prominence of the portal vein 15 mm suggesting portal hypertension with appropriate direction of blood flow within the portal vein. 3. Minimal amount fluid around the spleen which is slightly enlarged
== END ==
LOC: RAD 02-17 08:30
DX: K74.69 Other cirrhosis of liver (principal)